=== PATIENT | female | born 1980 | race Caucasian/White ===

== ENCOUNTER 2020-06-19 17:17 | Outpatient (CLI) | payer OTHER, SELFPAY ==
[2020-06-21 14:11] LABS: SARS-CoV-2 RNA PCR Positive
== END 2020-06-19 17:18 | disposition home or self-care (01) ==
LOC: CHSLAB 17:23
PROVIDERS: PCP Family Medicine; Visit Provider Family Medicine
DX: U07.1 COVID-19 (principal)
CPT/HCPCS: 87635; C9803; U0003

== ENCOUNTER 2020-06-28 12:52 | Outpatient (CLI) | payer OTHER, SELFPAY ==
[2020-06-29 13:34] LABS: SARS-CoV-2 RNA PCR Positive
== END 2020-06-28 12:53 | disposition home or self-care (01) ==
PROVIDERS: PCP Family Medicine; Visit Provider Family Medicine
DX: U07.1 COVID-19 (principal)
CPT/HCPCS: 87635; C9803; U0003

== ENCOUNTER 2020-09-30 15:05 | Outpatient (CLI) | payer OTHER, SELFPAY ==
[2020-09-30 16:39] LABS: Alanine Aminotransferase 21 U/L (14-59); Albumin Level 4.3 g/dL (3.4-5.0); Alkaline Phosphatase 38 U/L (46-116); Anion Gap 11 mmol/L (8-16); Aspartate Amino Transferase 12 U/L (15-37); Bilirubin,Total 0.2 mg/dL (0.00-1.00); Blood Urea Nitrogen 23 mg/dL (7-18); Carbon Dioxide 26 mmol/L (21-32); Chloride 104 mmol/L (98-108); Cholesterol 161 mg/dL (0-200); Estimated Glomerular Filt Rate > 60; Glucose 110 mg/dL (70-99); HDL Direct 53 mg/dL (40-60); LDL Cholesterol Calculated 83 mg/dL (<130); Osmolality Calculated 296 mOsm/kg (285-295); Potassium 3.7 mmol/L (3.5-5.1); Sodium 141 mmol/L (136-145); Total Protein 7.3 g/dL (6.4-8.2); Triglycerides 127 mg/dL (0-150)
== END 2020-09-30 15:06 | disposition home or self-care (01) ==
LOC: CHSLAB 15:08
PROVIDERS: PCP Family Medicine; Visit Provider Internal Medicine Cardiovascular Disease
DX: E78.5 Hyperlipidemia, unspecified (principal)
CPT/HCPCS: 36415; 80053; 80061

== ENCOUNTER 2021-03-25 16:34 | Outpatient (CLI) | payer OTHER, SELFPAY ==
[2021-03-25 16:46] LABS: Basophils Absolute Auto 0.05 K/mm3 (0.00-0.10); Basophils Percent Auto 0.7 % (0.0-1.0); Eosinophils Absolute Auto 0.13 K/mm3 (0.02-0.50); Eosinophils Percent Auto 1.8 % (1.0-6.0); Hematocrit 36.8 % (35.0-49.0); Hemoglobin 11.9 g/dL (12.0-15.0); Immature Granulocyte Absolute 0.01 K/mm3 (0.00-0.00); Immature Granulocyte Percent A 0.1 % (0.0-0.0); Lymphocytes Absolute Auto 2.11 K/mm3 (1.10-4.50); Lymphocytes Percent Auto 28.9 % (18.0-42.0); Mean Corpuscular HGB Conc 32.3 g/dL (32.0-36.0); Mean Corpuscular Volume 89.8 fL (78.0-102.0); Mean Platelet Volume 9.6 fl (9.2-11.8); Monocytes Absolute Auto 0.43 K/mm3 (0.10-0.90); Monocytes Percent Auto 5.9 % (2.0-11.0); Neutrophils Absolute Auto 4.6 K/mm3 (1.7-7.2); Neutrophils Percent Auto 62.6 % (50.0-70.0); Platelet Count Result 345 K/mm3 (150-420); Red Cell Distribution Width 14.1 % (11.6-14.4); White Blood Count 7.3 K/mm3 (4.8-10.8)
[2021-03-25 16:54] LABS: Creatinine Urine 140.86 mg/dL (40-278); MALB Creatinine Ratio 12.3 mg/g (0-30); Microalbumin Urine Random 17.4 mg/L
[2021-03-25 16:55] LABS: Hemoglobin A1C 7.5 % (<5.7)
[2021-03-25 17:10] LABS: Anion Gap 11 mmol/L (8-16); Blood Urea Nitrogen 28 mg/dL (7-18); Carbon Dioxide 24 mmol/L (21-32); Chloride 107 mmol/L (98-108); Estimated Glomerular Filt Rate > 60; Glucose 135 mg/dL (70-99); Osmolality Calculated 301 mOsm/kg (285-295); Potassium 3.8 mmol/L (3.5-5.1); Sodium 142 mmol/L (136-145)
== END 2021-03-25 16:35 | disposition home or self-care (01) ==
LOC: CHSLAB 16:36
PROVIDERS: PCP Family Medicine; Visit Provider Family Medicine
DX: E11.9 Type 2 diabetes mellitus without complications (principal); E78.2 Mixed hyperlipidemia; E03.9 Hypothyroidism, unspecified
CPT/HCPCS: 36415; 80048; 82043; 83036; 85025

== ENCOUNTER 2021-08-05 08:16 | Outpatient (CLI) | payer OTHER, SELFPAY ==
[2021-08-05 09:33] LABS: SARS-CoV-2 RNA PCR Negative (Negative)
== END 2021-08-05 08:17 | disposition home or self-care (01) ==
LOC: CHSLAB 08:19
PROVIDERS: PCP Family Medicine; Visit Provider Family Medicine
DX: J32.9 Chronic sinusitis, unspecified (principal); Z20.822 Contact with and (suspected) exposure to COVID-19
CPT/HCPCS: C9803; U0003; U0005

== ENCOUNTER 2021-10-20 17:08 | Outpatient (CLI) | payer OTHER, SELFPAY ==
[2021-10-20 17:31] LABS: Basophils Absolute Auto 0.03 K/mm3 (0.00-0.10); Basophils Percent Auto 0.4 % (0.0-1.0); Eosinophils Percent Auto 1.3 % (1.0-6.0); Hematocrit 40.6 % (35.0-49.0); Hemoglobin 13.6 g/dL (12.0-15.0); Immature Granulocyte Absolute 0.02 K/mm3 (0.00-0.00); Immature Granulocyte Percent A 0.3 % (0.0-0.0); Lymphocytes Absolute Auto 2.24 K/mm3 (1.10-4.50); Mean Corpuscular HGB Conc 33.5 g/dL (32.0-36.0); Mean Corpuscular Hemoglobin 30.4 pg (27.0-31.0); Mean Corpuscular Volume 90.8 fL (78.0-102.0); Mean Platelet Volume 9.9 fl (9.2-11.8); Monocytes Absolute Auto 0.52 K/mm3 (0.10-0.90); Monocytes Percent Auto 6.5 % (2.0-11.0); Neutrophils Absolute Auto 5.1 K/mm3 (1.7-7.2); Neutrophils Percent Auto 63.5 % (50.0-70.0); Platelet Count Result 330 K/mm3 (150-420); Red Blood Count 4.47 M/mm3 (4.20-5.40); Red Cell Distribution Width 13.1 % (11.6-14.4)
[2021-10-20 17:32] LABS: Add Urine Microscopic? YES; Appearance Urine Clear (Clear); Bilirubin Urine Negative (Negative); Blood Urine Negative (Negative); Color Urine Yellow (Yellow); Glucose Urine UA Negative (Negative); Ketones Urine Trace (Negative); Leukocyte Esterase Ur Negative LEU/UL (Negative); Nitrate Urine Negative (Negative); Protein Urine Negative (Negative); Specific Grav Ur 1.025 (1.010-1.020); Urobilinogen Urine 0.2 mg/dL (0.2-1.0)
[2021-10-20 17:38] LABS: Bacteria Urine 2+ /hpf; Pregnancy On Board Control Positive; RBC Urine 0-2 /hpf (0-2); Squamous Epithelial Cell Urine Few /hpf (Few); Urine Pregnancy Test Negative; WBC Urine 0-3 /hpf (0-3)
[2021-10-20 17:43] LABS: Hemoglobin A1C 9.4 % (<5.7)
[2021-10-20 17:56] LABS: Alanine Aminotransferase 28 U/L (14-59); Alkaline Phosphatase 34 U/L (46-116); Amylase 35 U/L (25-115); Anion Gap 12 mmol/L (8-16); Aspartate Amino Transferase 13 U/L (15-37); Bilirubin,Total 0.3 mg/dL (0.00-1.00); Blood Urea Nitrogen 23 mg/dL (7-18); Calcium 8.9 mg/dL (8.5-10.1); Carbon Dioxide 25 mmol/L (21-32); Chloride 103 mmol/L (98-108); Estimated Glomerular Filt Rate 59; Glucose 167 mg/dL (70-99); Lipase 45 U/L (73-393); Osmolality Calculated 297 mOsm/kg (285-295); Potassium 3.5 mmol/L (3.5-5.1); Sodium 140 mmol/L (136-145); Thyroid Stimulating Hormone 8.96 uIU/mL (0.36-3.74); Total Protein 7.6 g/dL (6.4-8.2)
== END 2021-10-20 17:09 | disposition home or self-care (01) ==
LOC: CHSLAB 17:10
PROVIDERS: PCP Family Medicine; Visit Provider Family Medicine
DX: R10.84 Generalized abdominal pain (principal); E11.9 Type 2 diabetes mellitus without complications; R19.7 Diarrhea, unspecified
CPT/HCPCS: 36415; 80053; 81001; 81025; 82150; 83036; 83690; 84443; 85025

== ENCOUNTER 2022-04-16 14:35 | Outpatient (CLI) | payer OTHER, SELFPAY ==
[2022-04-16 15:06] LABS: Basophils Absolute Auto 0.05 K/mm3 (0.00-0.10); Basophils Percent Auto 0.7 % (0.0-1.0); Eosinophils Absolute Auto 0.17 K/mm3 (0.02-0.50); Eosinophils Percent Auto 2.3 % (1.0-6.0); Hematocrit 41.5 % (35.0-49.0); Hemoglobin 13.6 g/dL (12.0-15.0); Immature Granulocyte Absolute 0.02 K/mm3 (0.00-0.00); Immature Granulocyte Percent A 0.3 % (0.0-0.0); Lymphocytes Absolute Auto 2.09 K/mm3 (1.10-4.50); Lymphocytes Percent Auto 28.6 % (18.0-42.0); Mean Corpuscular HGB Conc 32.8 g/dL (32.0-36.0); Mean Corpuscular Hemoglobin 29.5 pg (27.0-31.0); Mean Platelet Volume 9.9 fl (9.2-11.8); Monocytes Absolute Auto 0.52 K/mm3 (0.10-0.90); Monocytes Percent Auto 7.1 % (2.0-11.0); Neutrophils Absolute Auto 4.5 K/mm3 (1.7-7.2); Platelet Count Result 371 K/mm3 (150-420); Red Blood Count 4.61 M/mm3 (4.20-5.40); Red Cell Distribution Width 12.6 % (11.6-14.4); White Blood Count 7.3 K/mm3 (4.8-10.8)
[2022-04-16 15:41] LABS: Alanine Aminotransferase 25 U/L (14-59); Albumin Level 4.6 g/dL (3.4-5.0); Alkaline Phosphatase 32 U/L (46-116); Amylase 34 U/L (25-115); Anion Gap 10 mmol/L (8-16); Aspartate Amino Transferase 13 U/L (15-37); Bilirubin,Total 0.3 mg/dL (0.00-1.00); Blood Urea Nitrogen 21 mg/dL (7-18); Calcium 9.2 mg/dL (8.5-10.1); Carbon Dioxide 25 mmol/L (21-32); Chloride 105 mmol/L (98-108); Creatine Kinase 56 U/L (26-192); Estimated Glomerular Filt Rate 59; Glucose 157 mg/dL (70-99); Lipase 57 U/L (73-393); Osmolality Calculated 296 mOsm/kg (285-295); Potassium 3.6 mmol/L (3.5-5.1); Sodium 140 mmol/L (136-145); Total Protein 7.7 g/dL (6.4-8.2)
[2022-04-16 15:42] LABS: CRP < 0.5 mg/dL (0.0-0.9)
[2022-04-16 15:50] LABS: Add Urine Microscopic? YES; Appearance Urine Clear (Clear); Bilirubin Urine Negative (Negative); Blood Urine 3+ (Negative); Color Urine Yellow (Yellow); Glucose Urine UA Negative (Negative); Ketones Urine Trace (Negative); Leukocyte Esterase Ur Negative (Negative); Nitrate Urine Negative (Negative); Protein Urine Negative (Negative); Specific Grav Ur >= 1.030 (1.010-1.020); Urobilinogen Urine 0.2 mg/dL (0.2-1.0); pH Urine 5.5 (5.0-8.0)
[2022-04-16 16:07] LABS: WBC Urine 0-3 /hpf (0-3)
[2022-04-16 16:08] LABS: Bacteria Urine Trace /hpf; Squamous Epithelial Cell Urine Few /hpf (Few)
[2022-04-19 19:43] LABS: Glutamic acid decarboxylase AA >250 IU/mL (<5)
== END 2022-04-16 14:36 | disposition home or self-care (01) ==
LOC: CHSLAB 14:38
PROVIDERS: PCP Family Medicine; Visit Provider Nurse Practitioner Family
DX: R07.9 Chest pain, unspecified (principal); E11.65 Type 2 diabetes mellitus with hyperglycemia
CPT/HCPCS: 36415; 80053; 81001; 82150; 82550; 82553; 83690; 84484; 85025; 86140; 86341; 87086; 87088

== ENCOUNTER 2022-05-30 15:17 | Emergency (ER) | payer OTHER, SELFPAY ==
--- NOTE | ~2022-05-30 | XR_ITS ---
XR wrist LT 2V DATE: 05/30/2022 17:54 INDICATION: Bilateral wrist pain after going down a slide today TECHNIQUE: AP and lateral views COMPARISON: None FINDINGS: No fracture or dislocation, periosteal reaction or bone destruction, erosive change or ysabel drocalcinosis. Joint spaces are well preserved. IMPRESSION: Negative Reviewed, dictated and finalized at location A. IMPRESSION: Negative
--- NOTE | ~2022-05-30 | XR_ITS ---
XR wrist RT 2V DATE: 05/30/2022 17:54 INDICATION: Bilateral wrist pain after injury today TECHNIQUE: AP and lateral views COMPARISON: None FINDINGS: No fracture or dislocation, periosteal reaction or bone destruction, joint space narrowing, erosive change or chondrocalcinosis. IMPRESSION: Negative Reviewed, dictated and finalized at location A. IMPRESSION: Negative
--- NOTE | ~2022-05-30 | CT_ITS ---
EXAMINATION: CT cervical spine wo con DATE: 05/30/2022 17:51 INDICATION: Neck pain after injury on a slide TECHNIQUE: Computed tomography (CT) of the cervical spine was performed without intravenous contrast. Automated exposure control and iterative reconstruction technique were employed. Exam dose: 379.75 mGy-cm total exam DLP. COMPARISON: None FINDINGS: There is straightening of spine which may be positional or due to muscle spasm. C1 and C2 are normally aligned and the odontoid process is intact. No fracture or dislocation or locked facet or prevertebral soft tissue swelling of the cervical spine . Cervical interspaces are relatively preserved. Mild posterior spurring at C4-5.. IMPRESSION: Mild degenerative change; no evidence of fracture or dislocation Reviewed, dictated and finalized at Location A. Reviewed, dictated and finalized at location A.
--- NOTE | ~2022-05-30 | XR_ITS ---
XR forearm LT 2V DATE: 05/30/2022 17:53 INDICATION: Left arm pain after injury going down a slide today TECHNIQUE: 2 views COMPARISON: None FINDINGS: No fracture or dislocation. No apparent elbow joint effusion. Normal alignment at the elbow and wrist joints. IMPRESSION: Negative Reviewed, dictated and finalized at location A. IMPRESSION: Negative
--- NOTE | ~2022-05-30 | XR_ITS ---
XR humerus LT DATE: 05/30/2022 17:52 INDICATION: Left arm pain TECHNIQUE: AP and lateral views COMPARISON: None FINDINGS: Normal alignment at the acromioclavicular, glenohumeral and elbow joints. No fracture or di slocation, periosteal reaction or bone destruction of the left humerus. IMPRESSION: Negative Reviewed, dictated and finalized at location A. IMPRESSION: Negative
[2022-05-30 16:30] VITALS: BP 122/84; PULSE 78; RESP 16; TEMP 36.3; O2SAT 98
--- NOTE | 2022-05-30 16:50 | PC.NURSE ---
1635 c-collar applied to pt after complaint of cervical neck injury
--- NOTE | 2022-05-30 16:52 | PC.NURSE ---
1635 ice pack to right wrist, left wrist/forearm. pt declined need for ice to left humerus.
[2022-05-30] MEDS: KETOROLAC (*BKC) 60 MG/2 ML VIAL IM (17:07)
[2022-05-30] MEDS: METOCLOPRAMIDE HCL INJ 10 MG/2 ML VIAL IM (17:07)
--- NOTE | 2022-05-30 17:39 | PC.NURSE ---
pt to xray dept via stretcher with xray staff.
--- NOTE | 2022-05-30 18:07 | PC.NURSE ---
pt c-collar removed per verbal order from dr england.
--- NOTE | 2022-05-30 18:19 | ED.NECK ---
HPI - Neck Pain/Injury General Chief Complaint: Neck Pain/Injury Stated Complaint: neck injury and pain down arm Time Seen by Provider: 05/30/22 15:29 Source: patient and family Mode of arrival: ambulatory Limitations: no limitations History of Present Illness HPI Narrative: This is a 41-year-old female that was at [employer] was on a trampoline and took a fall off a trampoline causing injury to her neck and to her left arm and bilateral wrists happened earlier today pain level about a 6/10 with some nausea with no headache no shortness of breath no chest pain no dysuria no abdominal pain no flank pain. complaint: neck pain Onset (ago): hour(s) Place: sports venue Related Data Home Medications Medication Instructions Recorded Confirmed metformin 500 mg tablet 500 mg PO TID 01/01/20 05/30/22 topiramate 100 mg tablet 100 mg PO DAILY 01/01/20 05/30/22 ascorbate calcium (vitamin C) 500 500 mg PO DAILY 03/18/20 05/30/22 mg tablet insulin glargine 100 unit/mL (3 20 unit subcut DAILY 03/18/20 05/30/22 mL) subcutaneous pen (Basaglar KwikPen U-100 Insulin) levothyroxine 175 mcg tablet 175 mcg PO DAILY 03/18/20 05/30/22 (Euthyrox) multivitamin (One-A-Day Essential 1 tablet PO DAILY 03/18/20 05/30/22 tablet) aspirin 81 mg tablet,delayed 81 mg PO DAILY 09/23/20 05/30/22 release (Adult Aspirin Regimen) atorvastatin 20 mg tablet 20 mg PO DAILY 09/23/20 05/30/22 Allergies Allergy/AdvReac Type Severity Reaction Status Date / Time ondansetron Allergy Severe Unknown Verified 12/11/20 10:24 pineapple Allergy Unknown Unknown Verified 12/11/20 10:24 Review of Systems Review of Systems: All systems reviewed & are unremarkable except as noted in HPI and below PMFSH Past Medical History Medical History (Updated 05/30/22 @ 18:23 by Christopher Garcia MD) Cardiac arrhythmia Diabetes Headache, migraine Thyroid disease Surgical History Surgical History History of Family History Family History Sibling Diabetes mellitus Mother Family history of thyroid disease Family history of migraine headaches Hypertension Patient's mother is in good health Family history of arthritis Social History Social History Smoking status: Former smoker Alcohol intake: current Exam Const: General: healthy appearing and no acute distress Nutritional Appearance: well nourished Limitations: no limitations HENMT: Head: normal to inspection General nose exam: Normal external nose present Face and sinus: normal facial exam Mouth: Yes Normal oral and palatal mucosa present Eyes: Conjunctivae: conjunctivae normal Pupils: Equal, round and reactive pupils present EOM: EOMs intact bilaterally Neck: Neck: normal visual inspection, no lymphadenopathy and no meningeal signs Chest: Chest palpation & inspection: normal inspection of the chest Resp: Effort & Inspection: normal respiratory effort Auscultation: clear to auscultation bilaterally Cardio: Rate: regular rate Rhythm: regular rhythm GI: GI Palp: Yes Soft to palpation Auscultation: normal bowel sounds : General: Yes bladder normal to palpation Back/Spine/Pelvis: Back: no CVA tenderness Skin: General skin exam: normal color Rashes: no rashes Neuro: General: patient oriented x3, moves all extremities and no meningeal signs Cranial nerves: Yes Nystagmus not present Speech: normal speech Gait exam (Neuro): Normal gait present Extrem: Other: Has tenderness in the cervical spine has good range of motion also having left arm and bilateral wrist pain with movement with no numbness or tingling. Psych: Mental Status: mental status grossly normal Affect: normal affect Course Course Emergency Course: Patient received Toradol IM and Reglan and her pain level has significantly i
[2022-05-30 18:45] VITALS: BP 119/82; PULSE 82; RESP 20; TEMP 36.6; O2SAT 97
== END 2022-05-30 18:50 | disposition home or self-care (01) ==
PROVIDERS: Emergency Provider Emergency Medicine; PCP Family Medicine
DX: S16.1XXA Strain of muscle, fascia and tendon at neck level, initial encounter (principal); W09.8XXA Fall on or from other playground equipment, initial encounter
CPT/HCPCS: 72125; 73060; 73090; 73100; 96372; 99284; J1885; J2765; L0150

== ENCOUNTER 2022-07-23 09:06 | Outpatient (CLI) | payer OTHER, SELFPAY ==
--- NOTE | ~2022-07-23 | XR_ITS ---
XR ribs BI 3V w CXR 2V DATE: 07/23/2022 09:46 INDICATION: Fall 2 months ago. Chest pain, worse on the right, with breathing TECHNIQUE: PA and lateral chest. 3 views of the right ribs. 3 views of left ribs. COMPARISON: None FINDINGS: Normal heart size. No hilar or mediastinal enlargement. No pulmonary infiltrate or consolid ation, pleural effusion or pulmonary vascular congestion or pneumothorax. Mild to moderate degenerative spurring of the thoracic spine. No left or right rib fracture or bone destruction is detected. Status post cholecystectomy. IMPRESSION: No active cardiac pulmonary disease or rib fractures detected Reviewed, dictated and finalized at location B. PAPER CARRIERS SUPERVISOR
[2022-07-23 09:30] LABS: Basophils Absolute Auto 0.03 K/mm3 (0.00-0.10); Basophils Percent Auto 0.5 % (0.0-1.0); Eosinophils Absolute Auto 0.06 K/mm3 (0.02-0.50); Hematocrit 35.3 % (35.0-49.0); Immature Granulocyte Absolute 0.02 K/mm3 (0.00-0.00); Immature Granulocyte Percent A 0.3 % (0.0-0.0); Lymphocytes Absolute Auto 1.36 K/mm3 (1.10-4.50); Lymphocytes Percent Auto 22.3 % (18.0-42.0); Mean Corpuscular HGB Conc 31.2 g/dL (32.0-36.0); Mean Corpuscular Hemoglobin 25.9 pg (27.0-31.0); Mean Corpuscular Volume 83.3 fL (78.0-102.0); Mean Platelet Volume 9.4 fl (9.2-11.8); Monocytes Absolute Auto 0.38 K/mm3 (0.10-0.90); Monocytes Percent Auto 6.2 % (2.0-11.0); Neutrophils Absolute Auto 4.3 K/mm3 (1.7-7.2); Neutrophils Percent Auto 69.7 % (50.0-70.0); Platelet Count Result 497 K/mm3 (150-420); Red Blood Count 4.24 M/mm3 (4.20-5.40); Red Cell Distribution Width 12.9 % (11.6-14.4); White Blood Count 6.1 K/mm3 (4.8-10.8)
[2022-07-23 09:33] LABS: Appearance Urine Cloudy (Clear); Bilirubin Urine Negative (Negative); Glucose Urine UA 3+ (Negative); Ketones Urine Trace (Negative); Leukocyte Esterase Ur 1+ (Negative); Nitrate Urine Positive (Negative); Protein Urine Trace (Negative); Urobilinogen Urine 0.2 mg/dL (0.2-1.0); pH Urine 6.5 (5.0-8.0)
[2022-07-23 09:48] LABS: Add Urine Microscopic? YES; Blood Urine Trace-Intact (Negative); Color Urine Light Yellow (Yellow)
[2022-07-23 09:49] LABS: Bacteria Urine 2+ /hpf; Squamous Epithelial Cell Urine Few /hpf (Few); WBC Urine 31-50 /hpf (0-3)
[2022-07-23 10:31] LABS: Creatinine Urine 97.18 mg/dL (40-278); MALB Creatinine Ratio 101.5 mg/g (0-30); Microalbumin Urine Random 98.7 mg/L
[2022-07-23 10:34] LABS: Alanine Aminotransferase 25 U/L (14-59); Albumin Level 4.2 g/dL (3.4-5.0); Alkaline Phosphatase 35 U/L (46-116); Anion Gap 11 mmol/L (8-16); Aspartate Amino Transferase 13 U/L (15-37); Bilirubin,Total 0.4 mg/dL (0.00-1.00); Blood Urea Nitrogen 24 mg/dL (7-18); Calcium 9.6 mg/dL (8.5-10.1); Carbon Dioxide 25 mmol/L (21-32); Chloride 105 mmol/L (98-108); Cholesterol 163 mg/dL (0-200); Estimated Glomerular Filt Rate > 60; Glucose 141 mg/dL (70-99); HDL Direct 57 mg/dL (40-60); LDL Cholesterol Calculated 87 mg/dL (<130); Osmolality Calculated 298 mOsm/kg (285-295); Potassium 4.2 mmol/L (3.5-5.1); Sodium 141 mmol/L (136-145); Thyroid Stimulating Hormone 0.52 uIU/mL (0.36-3.74); Total Protein 7.5 g/dL (6.4-8.2); Triglycerides 97 mg/dL (0-150); Vitamin B12 587 pg/mL (193-986)
[2022-07-23 10:49] LABS: Amylase 35 U/L (25-115); Lipase 78 U/L (73-393)
[2022-07-23 15:28] LABS: Ferritin 4 ng/mL (8-252); Iron 21 ug/dL (50-170); Percent Iron Saturation 6 % (12-57)
[2022-07-27 20:54] LABS: C-Peptide 2.21 ng/mL (0.80-3.85)
[2022-07-28 20:03] LABS: Vitamin D 25 Hydroxy 31 ng/mL (30-100)
[2022-08-01 18:08] LABS: Zinc Transporter 8 Antibody 75 U/mL (<15)
== END 2022-07-23 09:07 | disposition home or self-care (01) ==
PROVIDERS: PCP Family Medicine; Visit Provider Nurse Practitioner Family
DX: R10.11 Right upper quadrant pain (principal); R53.83 Other fatigue; E11.9 Type 2 diabetes mellitus without complications; D64.9 Anemia, unspecified; N39.0 Urinary tract infection, site not specified
CPT/HCPCS: 36415; 71046; 71110; 80053; 80061; 81001; 82043; 82150; 82306; 82607; 82728; 83540; 83550; 83690; 84439; 84443; 84681; 85025; 86341; 87077; 87086; 87088; 87186

== ENCOUNTER 2022-07-27 13:53 | Outpatient (CLI) | payer OTHER, SELFPAY ==
--- NOTE | ~2022-07-27 | MM_ITS ---
EXAMINATION: MM screening damaris BI w jim HISTORY: Baseline screening mammogram TECHNIQUE: Craniocaudal and mediolateral oblique 3-D tomosynthesis images were obtained and synthetic 2-D images were generated. CAD analysis was submitted and interpreted. COMPARISON: None, baseline BREAST PARENCHYMAL COMPOSITION: There are scattered areas of fibroglandular density. FINDINGS: Scattered benign-appearing calcifications are present. No suspicious mass, calcification, o r architectural distortion are identified in either breast to suggest malignancy. IMPRESSION: 1. No mammographic evidence of malignancy. 2. Recommend routine screening mammography in one year. BI-RADS Category 2: Benign finding(s). Reviewed, dictated and finalized at location A. HOLOGICAL OPERATIONS OFFICER
== END 2022-07-27 13:54 | disposition home or self-care (01) ==
LOC: CHSIMG 13:54
PROVIDERS: PCP Family Medicine; Visit Provider Family Medicine
DX: Z12.31 Encounter for screening mammogram for malignant neoplasm of breast (principal)
CPT/HCPCS: 77063; 77067

== ENCOUNTER 2022-08-11 12:12 | Outpatient (CLI) | payer OTHER, SELFPAY ==
[2022-08-11 13:03] LABS: SARS-CoV-2 RNA PCR Negative (Negative)
== END 2022-08-11 12:13 | disposition home or self-care (01) ==
LOC: CHSLAB 12:16
PROVIDERS: PCP Family Medicine; Visit Provider Family Medicine
DX: R51.9 Headache, unspecified (principal); Z20.822 Contact with and (suspected) exposure to COVID-19
CPT/HCPCS: U0003; U0005

== ENCOUNTER 2022-08-17 10:41 | Emergency (ER) | payer OTHER, SELFPAY ==
--- NOTE | ~2022-08-17 | XR_ITS ---
EXAMINATION: XR chest 1V portable DATE: 08/17/2022 11:33 INDICATION: Inferior sternal chest pain. TECHNIQUE: A single frontal view of the chest was obtained. COMPARISON: Chest 2 views 07/23/2022 FINDINGS: The chest demonstrates clear lungs without pneumonia, pleural effusion, or pneumothorax. Th e heart size is normal. IMPRESSION: 1. No acute cardiopulmonary disease. Reviewed, dictated and finalized at location A. DER
[2022-08-17 10:42] VITALS: BP 126/62; PULSE 80; RESP 18; TEMP 36.4; O2SAT 99
[2022-08-17 10:45] VITALS: BP 126/62; PULSE 93; RESP 16; TEMP 36.4; O2SAT 99
[2022-08-17 10:50] VITALS: PULSE 87
--- NOTE | 2022-08-17 10:56 | ED.CHESTPAIN ---
HPI - Chest Pain General Chief Complaint: Chest Pain Stated Complaint: Chest pain, pain lower stomach Time Seen by Provider: 08/17/22 10:56 Source: patient Mode of arrival: ambulatory History of Present Illness HPI narrative: 41-year-old female with a history of hypertension, hypothyroidism,diabetes mellitus, dyslipidemia, status post bilateral tubal ligation presents to the ER with a 3 day history of -- lower substernal chest pain. Pain is not related to exercise. Pain is rated at 8/10. No radiation of the pain. No lightheadedness or dizziness. Pain does cause her to have shortness of breath. Pain gets worse with deep breathing. -- Right lower quadrant abdominal pain. No fever. No nausea / vomiting / diarrhea / constipation. History of a mass removed from the left side of the abdomen -- vaginal bleeding for 1 day. MD complaint: chest pain Onset (ago): day(s) ( Started 3 days ago) Timing of current episode: episodic Prior episodes: No Onset: during rest Pain location: substernal Pain radiation: none Pain scale (0-10): 8 Quality: aching Relieving factors: nothing Exacerbating factors: inspiration Treatment prior to arrival: none Risk Factors Coronary artery disease risk factors: diabetes and hyperlipidemia Related Data On Oral Contraceptives: No Home Medications Medication Instructions Recorded Confirmed topiramate 100 mg tablet 100 mg PO DAILY 01/01/20 08/17/22 ascorbate calcium (vitamin C) 500 500 mg PO DAILY 03/18/20 08/17/22 mg tablet insulin glargine 100 unit/mL (3 20 unit subcut DAILY 03/18/20 08/17/22 mL) subcutaneous pen (Basaglar KwikPen U-100 Insulin) levothyroxine 175 mcg tablet 175 mcg PO DAILY 03/18/20 08/17/22 (Euthyrox) multivitamin (One-A-Day Essential 1 tablet PO DAILY 03/18/20 08/17/22 tablet) aspirin 81 mg tablet,delayed 81 mg PO DAILY 09/23/20 08/17/22 release (Adult Aspirin Regimen) atorvastatin 20 mg tablet 20 mg PO DAILY 09/23/20 08/17/22 Saccharomyces boulardii 250 mg 250 mg PO BID 06/11/22 08/17/22 capsule (Digest Probiotic (S.boulardii)) dulaglutide 4.5 mg/0.5 mL 4.5 mg subcut WEEKLY 06/11/22 08/17/22 [facility] omeprazole 40 mg capsule,delayed 40 mg PO 06/11/22 06/15/22 release Allergies Allergy/AdvReac Type Severity Reaction Status Date / Time ondansetron Allergy Severe Unknown Verified 08/17/22 10:57 pineapple Allergy Unknown Unknown Verified 08/17/22 10:57 Sulfa (Sulfonamide Allergy Itching Verified 08/17/22 12:36 Antibiotics) Review of Systems Review of Systems: All systems reviewed & are unremarkable except as noted in HPI and below Constitutional: Constitutional: Reports as per HPI and Reports no additional constitutional complaints Eyes: Eyes: Reports as per HPI and Reports no additional eye complaints ENT: Reports system reviewed and no additional complaints, except as documented and Reports as per HPI Cardiovascular: Cardiovascular: Reports as per HPI, Reports no additional cardiovascular complaints and Reports chest pain Respiratory: Respiratory: Reports as per HPI, Reports no additional respiratory complaints and Reports dyspnea Gastrointestinal: Gastrointestinal: Reports as per HPI, Reports no additional gastrointestinal complaints and Reports abdominal pain Comments: Right lower quadrant abdominal pain. Genitourinary: Genitourinary: Reports no additional female genitourinary complaints, Reports as per HPI and Reports abnormal vaginal bleeding Musculoskeletal: Musculoskeletal: Reports no additional musculoskeletal complaints and Reports as per HPI Integumentary/Breasts: Skin/Breast: Reports system reviewed and no additional complaints, except as docu and Reports as per HPI Neurologic: Reports system reviewed and no additional complaints, except as documented and Reports as per HPI Psychiatric: Psychiatric: Reports no additional psychiatric complaints and Reports as per HPI Endocrine: Endocrine
[2022-08-17 10:57] VITALS: BP 126/62; PULSE 80; RESP 18; TEMP 36.4; O2SAT 99
--- NOTE | 2022-08-17 11:11 | ECG_ITS ---
Measurements Intervals [place] Rate: 71 P: 45 SC: 182 QRS: -50 QRSD: 95 T: 54 QT: 347 QTc: 378 Interpretive Statements SINUS RHYTHM WITH SINUS ARRHYTHMIA LEFT AXIS DEVIATION [QRS AXIS < -30] POOR R-WAVE PROGRESSION NO PREVIOUS ECG AVAILABLE FOR COMPARISON Electronically Signed On 08-18-2022 19:14:10 THERAPIST by Willa Page M.D.
[2022-08-17 11:30] LABS: Basophils Absolute Auto 0.04 K/mm3 (0.00-0.10); Basophils Percent Auto 0.6 % (0.0-1.0); Eosinophils Absolute Auto 0.04 K/mm3 (0.02-0.50); Eosinophils Percent Auto 0.6 % (1.0-6.0); Hematocrit 33.1 % (35.0-49.0); Hemoglobin 10.2 g/dL (12.0-15.0); Immature Granulocyte Absolute 0.02 K/mm3 (0.00-0.00); Immature Granulocyte Percent A 0.3 % (0.0-0.0); Lymphocytes Absolute Auto 1.27 K/mm3 (1.10-4.50); Lymphocytes Percent Auto 19.3 % (18.0-42.0); Mean Corpuscular HGB Conc 30.8 g/dL (32.0-36.0); Mean Corpuscular Hemoglobin 24.9 pg (27.0-31.0); Mean Corpuscular Volume 80.9 fL (78.0-102.0); Mean Platelet Volume 9.7 fl (9.2-11.8); Monocytes Absolute Auto 0.39 K/mm3 (0.10-0.90); Monocytes Percent Auto 5.9 % (2.0-11.0); Neutrophils Absolute Auto 4.8 K/mm3 (1.7-7.2); Neutrophils Percent Auto 73.3 % (50.0-70.0); Platelet Count Result 402 K/mm3 (150-420); Red Blood Count 4.09 M/mm3 (4.20-5.40); Red Cell Distribution Width 14.2 % (11.6-14.4); White Blood Count 6.6 K/mm3 (4.8-10.8)
[2022-08-17 11:34] LABS: Appearance Urine Clear (Clear); Bilirubin Urine Negative (Negative); Blood Urine Negative (Negative); Glucose Urine UA 3+ (Negative); Ketones Urine 1+ (Negative); Leukocyte Esterase Ur Negative LEU/UL (Negative); Nitrate Urine Negative (Negative); Protein Urine Negative (Negative); Urobilinogen Urine 0.2 mg/dL (0.2-1.0); pH Urine 6.5 (5.0-8.0)
[2022-08-17 11:44] LABS: Partial Thromboplastin Time 27.3 SEC (23.90-30.70); Prothrombin Time 11.3 Seconds (9.50-12.10)
[2022-08-17 12:00] VITALS: BP 118/71; PULSE 71; PULSE 84; RESP 16; O2SAT 98
[2022-08-17 12:45] LABS: Add Urine Microscopic? YES; Color Urine Light Yellow (Yellow)
[2022-08-17 12:46] LABS: RBC Urine None seen /hpf (0-2); Squamous Epithelial Cell Urine Few /hpf (Few); WBC Urine None seen /hpf (0-3)
[2022-08-17 12:47] LABS: Bacteria Urine Trace /hpf
[2022-08-17 14:00] VITALS: BP 108/74; PULSE 68; RESP 16; O2SAT 98
[2022-08-17 15:07] LABS: Aspartate Amino Transferase < 10 U/L (15-37); Blood Urea Nitrogen 0 mg/dL (7-18)
[2022-08-17 15:16] LABS: Lactic Acid Reflex 0.7 mmol/L (0.4-2.0)
[2022-08-17 15:20] LABS: Lipase 72 U/L (73-393); Thyroid Stimulating Hormone 0.61 uIU/mL (0.36-3.74); Troponin I 15.4 ng/L (0.00-60.4)
[2022-08-17 15:25] LABS: Alanine Aminotransferase 15 U/L (14-59); Alkaline Phosphatase 31 U/L (46-116); Anion Gap 10 mmol/L (8-16); Bilirubin,Total 0.3 mg/dL (0.00-1.00); Calcium 8.8 mg/dL (8.5-10.1); Carbon Dioxide 27 mmol/L (21-32); Chloride 103 mmol/L (98-108); Estimated CRCL calculation 88 ml/min; Estimated Glomerular Filt Rate > 60; Glucose 189 mg/dL (70-99); Osmolality Calculated 290 mOsm/kg (285-295); Potassium 3.6 mmol/L (3.5-5.1); Sodium 140 mmol/L (136-145); Total Protein 6.7 g/dL (6.4-8.2)
== END 2022-08-17 14:20 | disposition left against medical advice (07) ==
PROVIDERS: Emergency Provider Internal Medicine Critical Care Medicine; PCP Family Medicine
DX: R07.9 Chest pain, unspecified (principal); R10.9 Unspecified abdominal pain; D64.9 Anemia, unspecified
CPT/HCPCS: 36415; 71045; 80053; 81001; 83605; 83690; 84443; 84484; 85025; 85610; 85730; 93005; 99284

== ENCOUNTER 2022-08-24 15:46 | Emergency (ER) | payer OTHER, SELFPAY ==
[2022-08-24 16:06] VITALS: BP 124/87; PULSE 78; RESP 18; TEMP 36.5; O2SAT 99
--- NOTE | 2022-08-24 16:29 | ED.HA ---
HPI - Headache General Chief Complaint: Headache Stated Complaint: migraine Time Seen by Provider: 08/24/22 16:18 Source: patient and RN notes reviewed Mode of arrival: ambulatory Limitations: no limitations History of Present Illness HPI Narrative: patient states she has migraines occasionally in her right anabaptism. She usually takes Imitrex and it goes away. Headache started this morning she has been having some nausea without vomiting. She denies any problems with light or sound making it worse. MD elicited complaint: migraine Pertinent past history: migraines Onset (ago): day(s) (1) Onset description: gradually Location: right and temporal Severity: moderate Quality & Timing: throbbing and dull Exacerbating factors: none Relieving factors: nothing Context: occurred at rest Associated symptoms: nausea Treatments prior to arrival: migraine medication Related Data Home Medications Medication Instructions Recorded Confirmed topiramate 100 mg tablet 100 mg PO DAILY 01/01/20 08/24/22 ascorbate calcium (vitamin C) 500 500 mg PO DAILY 03/18/20 08/24/22 mg tablet insulin glargine 100 unit/mL (3 20 unit subcut DAILY 03/18/20 08/24/22 mL) subcutaneous pen (Basaglar KwikPen U-100 Insulin) levothyroxine 175 mcg tablet 175 mcg PO DAILY 03/18/20 08/24/22 (Euthyrox) multivitamin (One-A-Day Essential 1 tablet PO DAILY 03/18/20 08/24/22 tablet) aspirin 81 mg tablet,delayed 81 mg PO DAILY 09/23/20 08/24/22 release (Adult Aspirin Regimen) atorvastatin 20 mg tablet 20 mg PO DAILY 09/23/20 08/24/22 Saccharomyces boulardii 250 mg 250 mg PO BID 06/11/22 08/24/22 capsule (Digest Probiotic (S.boulardii)) dulaglutide 4.5 mg/0.5 mL 4.5 mg subcut WEEKLY 06/11/22 08/24/22 subcutaneous pen injector ([facility]) omeprazole 40 mg capsule,delayed 40 mg PO DAILY 06/11/22 08/24/22 release Allergies Allergy/AdvReac Type Severity Reaction Status Date / Time ondansetron Allergy Severe Unknown Verified 08/24/22 16:13 pineapple Allergy Unknown Unknown Verified 08/24/22 16:13 Sulfa (Sulfonamide Allergy Itching Verified 08/24/22 16:13 Antibiotics) Review of Systems Review of Systems: All systems reviewed & are unremarkable except as noted in HPI and below PMFSH Past Medical History Medical History Body mass index (BMI) 35 or more (02/03/19) Cardiac arrhythmia Diabetes 1.5, managed as type 2 Dyslipidemia Headache, migraine Obesity (BMI 35.0-39.9 without comorbidity) JENNY (obstructive sleep apnea) Thyroid disease Ventricular ectopic beats Surgical History Surgical History History of abdominal surgery Removal of mass on left side History of bilateral tubal ligation History of x2 History of cholecystectomy Family History Family History Sibling Diabetes mellitus sister Family history of migraine headaches sister Thyroid disorder sister Mother Family history of thyroid disease Family history of migraine headaches Hypertension Family history of arthritis Grandparent Cerebrovascular accident Thyroid disorder Osteoporosis Pacemaker Grandparent Acute myocardial infarction Hypertension Social History Social History Smoking status: Former smoker Tobacco type: cigarettes Alcohol intake: former Substance use: current Substance use type: marijuana Other substance usage details: Sometimes Gender identity (if verbalized by the patient): Female Exam Const: General: healthy appearing, no acute distress and alert Nutritional Appearance: well nourished and obese Orientation/consciousness: patient oriented x3 Limitations: no limitations HENMT: Head: normal to inspection Ears: external ears normal Eyes: Conjunctivae: conjunctiva
[2022-08-24] MEDS: METOCLOPRAMIDE HCL INJ 10 MG/2 ML VIAL IV PUSH (16:31)
[2022-08-24] MEDS: diphenhydrAMINE HCl INJ 50 MG/ML VIAL IV PUSH (16:31)
[2022-08-24] MEDS: KETOROLAC 30 MG/ML VIAL (*BKC) IV PUSH (16:32)
--- NOTE | 2022-08-24 16:39 | PC.NURSE ---
Pt has freestyle melissa pod in upper right arm that lets her know her current blood glucose which is 125 currently.
[2022-08-24 17:00] VITALS: BP 94/63; PULSE 75; RESP 18; TEMP 36.4; O2SAT 100
--- NOTE | 2022-08-24 17:20 | PC.NURSE ---
Pt resting better at this time, lights were turned off for comfort.
== END 2022-08-24 17:45 | disposition home or self-care (01) ==
PROVIDERS: Emergency Provider Emergency Medicine; PCP Family Medicine
DX: G43.009 Migraine without aura, not intractable, without status migrainosus (principal); E13.9 Other specified diabetes mellitus without complications; Z79.4 Long term (current) use of insulin; Z79.82 Long term (current) use of aspirin; Z87.891 Personal history of nicotine dependence
CPT/HCPCS: 96374; 96375; 99284; J1200; J1885; J2765

== ENCOUNTER 2022-10-05 15:36 | Outpatient (CLI) | payer OTHER, SELFPAY ==
--- NOTE | ~2022-10-05 | XR_ITS ---
EXAM: XR wrist RT min 3V DATE: 10/05/2022 16:00 HISTORY: CERVICALGIA, PAIN IN R WRIST,S/P INJURY ON SLIDE X4MO AGO . COMPARISON: 05/30/2022. FINDINGS: Normal mineralization. Old ulnar styloid fracture. No acute fracture. Apparent widening of the distal radial ulnar joint. No lytic or blastic lesion. Joint spaces are maintained. No erosion o r periosteal change. Soft tissues within normal limits. IMPRESSION: Apparent distal radial ulnar joint widening which may be artifact from projection or rela syeda to ligamentous injury. Correlate with pain/tenderness. Reviewed, dictated and finalized at location K. IT CASHIER IMPRESSION: Apparent distal radial ulnar joint widening which may be artifact f rom projection or related to ligamentous injury. Correlate with pain/tenderness .
--- NOTE | ~2022-10-05 | XR_ITS ---
EXAMINATION: XR_CERV2-3V_CR DATE: 10/05/2022 16:00 INDICATION: Neck pain. TECHNIQUE: 3 views of cervical spine were obtained. COMPARISON: CT cervical spine 05/30/2022. FINDINGS: Bone alignment is normal. Vertebral body heights and intervertebral disc heights are normal . The facet joints are normal. There is mild central canal stenosis at C4-C5. No prevertebral soft ti ssue swelling. IMPRESSION: 1. Mild cervical spondylosis. Reviewed, dictated and finalized at location A. CARPENTER
== END 2022-10-05 15:37 | disposition home or self-care (01) ==
LOC: CHSIMG 15:38
PROVIDERS: PCP Family Medicine; Visit Provider Family Medicine
DX: M25.531 Pain in right wrist (principal); M54.2 Cervicalgia; M43.02 Spondylolysis, cervical region
CPT/HCPCS: 72040; 73110

== ENCOUNTER 2022-10-19 14:04 | Outpatient (CLI) | payer OTHER, SELFPAY ==
[2022-10-19 14:25] LABS: Basophils Absolute Auto 0.06 K/mm3 (0.00-0.10); Eosinophils Absolute Auto 0.17 K/mm3 (0.02-0.50); Eosinophils Percent Auto 2.8 % (1.0-6.0); Hematocrit 33.6 % (35.0-49.0); Hemoglobin 10.2 g/dL (12.0-15.0); Immature Granulocyte Absolute 0.01 K/mm3 (0.00-0.00); Immature Granulocyte Percent A 0.2 % (0.0-0.0); Lymphocytes Absolute Auto 1.55 K/mm3 (1.10-4.50); Lymphocytes Percent Auto 25.2 % (18.0-42.0); Mean Corpuscular HGB Conc 30.4 g/dL (32.0-36.0); Mean Corpuscular Hemoglobin 24.4 pg (27.0-31.0); Mean Corpuscular Volume 80.4 fL (78.0-102.0); Mean Platelet Volume 9.9 fl (9.2-11.8); Monocytes Percent Auto 6.5 % (2.0-11.0); Neutrophils Percent Auto 64.3 % (50.0-70.0); Platelet Count Result 336 K/mm3 (150-420); Red Blood Count 4.18 M/mm3 (4.20-5.40); Red Cell Distribution Width 16.5 % (11.6-14.4); White Blood Count 6.1 K/mm3 (4.8-10.8)
[2022-10-19 15:00] LABS: Alanine Aminotransferase 510 U/L (14-59); Alkaline Phosphatase 90 U/L (46-116); Amylase 37 U/L (25-115); Anion Gap 8 mmol/L (8-16); Aspartate Amino Transferase 122 U/L (15-37); Bilirubin,Total 0.3 mg/dL (0.00-1.00); Blood Urea Nitrogen 18 mg/dL (7-18); Calcium 9.1 mg/dL (8.5-10.1); Carbon Dioxide 25 mmol/L (21-32); Chloride 104 mmol/L (98-108); Estimated Glomerular Filt Rate > 60; Glucose 148 mg/dL (70-99); Lipase 24 U/L (16-77); Osmolality Calculated 288 mOsm/kg (285-295); Potassium 4.2 mmol/L (3.5-5.1); Sodium 137 mmol/L (136-145); Total Protein 6.9 g/dL (6.4-8.2)
[2022-10-19 15:24] LABS: SPREG INTERNAL CONTROL Positive; Serum Qual hCG Negative
== END 2022-10-19 14:05 | disposition home or self-care (01) ==
LOC: CHSLAB 14:05
PROVIDERS: PCP Family Medicine; Visit Provider Family Medicine
DX: R10.84 Generalized abdominal pain (principal)
CPT/HCPCS: 36415; 80053; 82150; 83690; 84703; 85025

== ENCOUNTER 2022-10-19 15:50 | Outpatient (RCR) | payer OTHER, SELFPAY ==
--- NOTE | 2022-10-20 07:09 | BUPTOPEVAL1 ---
Assessment and note entered by Christopher Caruso Evaluation Information Assessment Status Evaluation Diagnosis cervicalgia Onset 05/30/22 Subjective Information Pt. reports that she was going down a slide at [employer], in the face first position, and hit an object face first. She reports she felt a pop in the neck and has noted pain since. Pt. describes pain going across the neck. She also notes numbness in both wrist's on occasion. She states that pain can wake her at night while sleeping. She states that she does work at [employer] and lifting heavy objects is difficult due to wrist pain. She also notes that she has migraines but has had them before her incident. she states that migraines are more frequent since her accident. She states that she continues to work despite her pain. She reports that her goal is to decrease her neck pain. Reported Pain Level Pain Score 6: Self Report Assessment PT Clinical Summary Pt. is a 41 year old female who enters the clinic with neck pain. She presents with impaired c- spine mobility, impaired postural awareness and generalized weakness of the periscapular and proximal u.e. mm. Continued skilled PT is indicated in order to improve these areas to allow the pt. to be able to participate in IADL's with decreased pain and improved efficiency. Plan of Care Interventions Electrical Stimulation,Hot Pack/Cold Pack,Manual Therapy,Mechanical Traction,Neuro Re-education, Patient/Caregiver Educati,Therapeutic Activities, Therapeutic Exercise PT Services Indicated Yes Treatment Frequency and 2x/week x 6 visits Duration These treatments will address the objective and functional deficits as defined above. The patient will be advanced safely and appropriately in order for the patient to progress towards his/her prior level of function. Additional exercises will be introduced and as well as a comprehensive home exercise program upon discharge, if needed, ?to ensure carryover of functional gains achieved in the clinic. This treatment plan has been reviewed and agreement upon by the patient.
== END 2022-12-08 23:59 | disposition home or self-care (01) ==
LOC: CHSPT 15:50
PROVIDERS: PCP Family Medicine; Visit Provider Family Medicine
DX: M54.2 Cervicalgia (principal)
CPT/HCPCS: 97014; 97110; 97112; 97140; 97161; G0283

== ENCOUNTER 2022-10-22 10:03 | Outpatient (CLI) | payer OTHER, SELFPAY ==
--- NOTE | ~2022-10-22 | US_ITS ---
EXAMINATION: US abdomen complete DATE: 10/22/2022 10:26 INDICATION: Abdominal pain. TECHNIQUE: Multiple grayscale and Doppler ultrasound images of the abdomen were obtained. COMPARISON: None FINDINGS: The visualized portions of the head and body of the pancreas are normal. There is diffuse h epatic steatosis. No liver surface nodularity. There is normal flow in main portal vein. The gallblad dav is absent. The common duct is normal and measures 3 mm. Right kidney measures 11.3 x 3.8 x 5.6 cm . Left kidney measures 10.1 x 4.7 x 5.2 cm. The spleen is normal in size. Abdominal aorta is normal i n caliber. Inferior vena cava is normal. IMPRESSION: 1. Diffuse hepatic steatosis. Reviewed, dictated and finalized at location A. UP MECHANIC STAMPING MACHINES
== END 2022-10-22 10:04 | disposition home or self-care (01) ==
LOC: CHSIMG 10:06
PROVIDERS: PCP Family Medicine; Visit Provider Family Medicine
DX: R10.9 Unspecified abdominal pain (principal); K76.0 Fatty (change of) liver, not elsewhere classified
CPT/HCPCS: 76700

== ENCOUNTER 2022-10-29 16:22 | Outpatient (CLI) | payer OTHER, SELFPAY ==
[2022-10-29 16:55] LABS: Basophils Absolute Auto 0.06 K/mm3 (0.00-0.10); Eosinophils Percent Auto 1.6 % (1.0-6.0); Hematocrit 33.4 % (35.0-49.0); Hemoglobin 10.3 g/dL (12.0-15.0); Lymphocytes Absolute Auto 2.16 K/mm3 (1.10-4.50); Lymphocytes Percent Auto 34.2 % (18.0-42.0); Mean Corpuscular HGB Conc 30.8 g/dL (32.0-36.0); Mean Corpuscular Hemoglobin 24.9 pg (27.0-31.0); Mean Corpuscular Volume 80.9 fL (78.0-102.0); Mean Platelet Volume 10.3 fl (9.2-11.8); Monocytes Absolute Auto 0.43 K/mm3 (0.10-0.90); Monocytes Percent Auto 6.8 % (2.0-11.0); Neutrophils Absolute Auto 3.6 K/mm3 (1.7-7.2); Neutrophils Percent Auto 56.4 % (50.0-70.0); Platelet Count Result 455 K/mm3 (150-420); Red Blood Count 4.13 M/mm3 (4.20-5.40); Red Cell Distribution Width 16.6 % (11.6-14.4); White Blood Count 6.3 K/mm3 (4.8-10.8)
[2022-10-29 17:18] LABS: Alanine Aminotransferase 50 U/L (14-59); Albumin Level 4.3 g/dL (3.4-5.0); Alkaline Phosphatase 47 U/L (46-116); Amylase 35 U/L (25-115); Anion Gap 11 mmol/L (8-16); Aspartate Amino Transferase 17 U/L (15-37); Bilirubin,Total 0.3 mg/dL (0.00-1.00); Blood Urea Nitrogen 20 mg/dL (7-18); Calcium 9.3 mg/dL (8.5-10.1); Carbon Dioxide 26 mmol/L (21-32); Chloride 106 mmol/L (98-108); Estimated Glomerular Filt Rate > 60; Glucose 130 mg/dL (70-99); Lipase 27 U/L (16-77); Osmolality Calculated 300 mOsm/kg (285-295); Potassium 3.9 mmol/L (3.5-5.1); Sodium 143 mmol/L (136-145); Total Protein 7.2 g/dL (6.4-8.2)
[2022-10-30 16:20] LABS: Ferritin 6 ng/mL (8-252); Iron 13 ug/dL (50-170); Percent Iron Saturation 4 % (12-57)
== END 2022-10-29 16:23 | disposition home or self-care (01) ==
LOC: CHSLAB 16:24
PROVIDERS: PCP Family Medicine; Visit Provider Family Medicine
DX: R10.84 Generalized abdominal pain (principal)
CPT/HCPCS: 36415; 80053; 82150; 82728; 83540; 83550; 83690; 85025

== ENCOUNTER 2022-11-09 09:19 | Outpatient (CLI) | payer OTHER, SELFPAY ==
--- NOTE | ~2022-11-09 | CT_ITS ---
EXAMINATION:CT diagnostic chest w con DATE: 11/09/2022 10:40 INDICATION: Disease of the esophagus. TECHNIQUE: Computed tomography (CT) of the chest was performed with 75 mL Omnipaque 350 intravenous c ontrast. Automated exposure control and iterative reconstruction technique were employed. The dose-le ngth product (DLP) was 181.59 mGy-cm. COMPARISON: None. FINDINGS: A calcified left lung nodule is consistent with old granulomatous disease. No pleural effus ion. The heart size is normal. No pericardial effusion. There are changes of cholecystectomy. Calcifi cations in the spleen are consistent with old granulomatous disease. The esophagus is normal. There i s a 6 mm nodule in left thyroid lobe, likely not clinically significant. There is mild thoracic spond ylosis. IMPRESSION: 1. Normal esophagus. Reviewed, dictated and finalized at location A. CUTTER IMPRESSION: 1. Normal esophagus.
== END 2022-11-09 09:20 | disposition home or self-care (01) ==
LOC: CHSIMG 09:22
PROVIDERS: PCP Family Medicine; Visit Provider Family Medicine
DX: K22.2 Esophageal obstruction (principal)
CPT/HCPCS: 71260; Q9967

== ENCOUNTER 2022-12-01 08:48 | Outpatient (CLI) | payer OTHER, SELFPAY | END 2022-12-01 08:49 | disposition home or self-care (01) | LOC: CHSIMG 08:50 | PROVIDERS: PCP Family Medicine; Visit Provider Family Medicine | DX: R91.8 Other nonspecific abnormal finding of lung field (principal) | CPT/HCPCS: 99199 ==

== ENCOUNTER 2023-01-14 16:32 | Emergency (ER) | payer OTHER, SELFPAY ==
[2023-01-14 16:32] VITALS: BP 109/79; PULSE 66; RESP 14; TEMP 36.8; O2SAT 100
--- NOTE | 2023-01-14 17:17 | ED.HA ---
HPI - Headache General Chief Complaint: Headache Stated Complaint: migraine x 4-5 hours Time Seen by Provider: 01/14/23 17:11 Source: patient and family Mode of arrival: ambulatory Limitations: no limitations History of Present Illness HPI Narrative: This is a 42-year-old female with some history of migraines presents with her typical migraine like headache throbbing light sensitive, sensitive to sound with no neck stiffness no fever chills does have some nausea with no episodes of vomiting no chest pain or shortness of breath. MD elicited complaint: migraine Onset (ago): hour(s) Onset description: gradually Location: frontal Severity: moderate Related Data Home Medications Medication Instructions Recorded Confirmed topiramate 100 mg tablet 100 mg PO DAILY 01/01/20 01/14/23 ascorbate calcium (vitamin C) 500 500 mg PO DAILY 03/18/20 01/14/23 mg tablet levothyroxine 175 mcg tablet 175 mcg PO DAILY 03/18/20 01/14/23 (Euthyrox) multivitamin (One-A-Day Essential 1 tablet PO DAILY 03/18/20 01/14/23 tablet) aspirin 81 mg tablet,delayed 81 mg PO DAILY 09/23/20 01/14/23 release (Adult Aspirin Regimen) atorvastatin 20 mg tablet 20 mg PO DAILY 09/23/20 01/14/23 Saccharomyces boulardii 250 mg 250 mg PO BID 06/11/22 01/14/23 capsule (Digest Probiotic (S.boulardii)) omeprazole 40 mg capsule,delayed 40 mg PO DAILY 06/11/22 01/14/23 release metformin 500 mg tablet 1,000 mg PO BIDWMEAL 09/24/22 01/14/23 Allergies Allergy/AdvReac Type Severity Reaction Status Date / Time ondansetron Allergy Severe Unknown Verified 09/24/22 11:14 pineapple Allergy Unknown Unknown Verified 09/24/22 11:14 Sulfa (Sulfonamide Allergy Itching Verified 09/24/22 11:14 Antibiotics) Review of Systems Review of Systems: All systems reviewed & are unremarkable except as noted in HPI and below PMFSH Past Medical History Medical History Body mass index (BMI) 35 or more (02/03/19) Cardiac arrhythmia Diabetes 1.5, managed as type 2 Dyslipidemia Headache, migraine Obesity (BMI 35.0-39.9 without comorbidity) JENNY (obstructive sleep apnea) Thyroid disease Ventricular ectopic beats Surgical History Surgical History History of abdominal surgery Removal of mass on left side History of bilateral tubal ligation History of x2 History of cholecystectomy Family History Family History Sibling Diabetes mellitus sister Family history of migraine headaches sister Thyroid disorder sister Mother Family history of thyroid disease Family history of migraine headaches Hypertension Family history of arthritis Grandparent Cerebrovascular accident Thyroid disorder Osteoporosis Pacemaker Grandparent Acute myocardial infarction Hypertension Social History Social History Smoking status: Former smoker Tobacco type: cigarettes Alcohol intake: former Substance use: current Substance use type: marijuana Other substance usage details: Sometimes Gender identity (if verbalized by the patient): Female Exam Const: General: healthy appearing Nutritional Appearance: well nourished Orientation/consciousness: patient oriented x3 Limitations: no limitations HENMT: Head: normal to inspection Eyes: Conjunctivae: conjunctivae normal Neck: Neck: normal visual inspection Chest: Chest palpation & inspection: normal inspection of the chest Resp: Effort & Inspection: normal respiratory effort Cardio: Rate: regular rate Rhythm: regular rhythm GI: GI Palp: Yes Soft to palpation : General: Yes bladder normal to palpation Skin: General skin exam: normal color Wounds: no wounds Neuro: General: patient oriented x3 Cranial nerves: Yes Nystagmus not present
[2023-01-14] MEDS: KETOROLAC 30 MG/ML VIAL (*BKC) IV PUSH (17:30)
[2023-01-14] MEDS: SODIUM CHLORIDE 0.9% IV 1,000 ML 999 ML IV CONT (17:30)
[2023-01-14] MEDS: METOCLOPRAMIDE HCL INJ 10 MG/2 ML VIAL IV PUSH (17:30)
== END 2023-01-14 18:06 | disposition home or self-care (01) ==
PROVIDERS: Emergency Provider Emergency Medicine; PCP Family Medicine
DX: G43.909 Migraine, unspecified, not intractable, without status migrainosus (principal); E13.9 Other specified diabetes mellitus without complications; Z79.84 Long term (current) use of oral hypoglycemic drugs; Z79.82 Long term (current) use of aspirin; Z87.891 Personal history of nicotine dependence
CPT/HCPCS: 96374; 96375; 99284; J1885; J2765; J7030

== ENCOUNTER 2023-05-18 09:46 | Outpatient (CLI) | payer OTHER, SELFPAY ==
--- NOTE | ~2023-05-18 | XR_ITS ---
EXAMINATION: XR foot RT min 3V DATE: 05/18/2023 10:03 INDICATION: Right foot pain. TECHNIQUE: 4 views of right foot were obtained. COMPARISON: Right foot radiographs 02/15/2019 FINDINGS: Bone alignment is normal. No fracture. There is mild osteoarthritis of first metatarsophala ngeal joint and fifth proximal interphalangeal joint. There are enthesophytes at the posterior and pl zully aspects of calcaneal tuberosity. IMPRESSION: 1. Mild polyarticular osteoarthritis. Reviewed, dictated and finalized at location A.
== END 2023-05-18 09:47 | disposition home or self-care (01) ==
PROVIDERS: PCP Family Medicine; Visit Provider Family Medicine
DX: M19.071 Primary osteoarthritis, right ankle and foot (principal); M79.671 Pain in right foot
CPT/HCPCS: 73630

== ENCOUNTER 2023-06-02 15:15 | Outpatient (CLI) | payer OTHER, SELFPAY ==
[2023-06-02 16:22] LABS: Strep Group A RT-PCR Not Detected (Negative)
[2023-06-02 16:36] LABS: Influenza A QL RT-PCR Negative (Negative); Influenza B QL RT-PCR Negative (Negative); SARS-CoV-2 RNA PCR Negative (Negative)
== END 2023-06-02 15:16 | disposition home or self-care (01) ==
LOC: CHSLAB 15:17
PROVIDERS: PCP Family Medicine; Visit Provider Family Medicine
DX: J02.9 Acute pharyngitis, unspecified (principal); Z20.822 Contact with and (suspected) exposure to COVID-19
CPT/HCPCS: 87636; 87651

== ENCOUNTER 2023-07-27 09:11 | Outpatient (CLI) | payer OTHER, SELFPAY ==
[2023-07-27 09:51] LABS: Strep Group A RT-PCR NOT DETECTED (Negative)
[2023-07-27 10:00] LABS: Influenza A QL RT-PCR Negative (Negative); Influenza B QL RT-PCR Negative (Negative); SARS-CoV-2 RNA PCR Negative (Negative)
== END 2023-07-27 09:12 | disposition home or self-care (01) ==
LOC: CHSLAB 09:13
PROVIDERS: PCP Family Medicine; Visit Provider Family Medicine
DX: J06.9 Acute upper respiratory infection, unspecified (principal)
CPT/HCPCS: 87636; 87651

== ENCOUNTER 2023-10-12 13:00 | Outpatient (RCR) | payer OTHER, SELFPAY | END 2023-11-01 10:01 | disposition home or self-care (01) | LOC: ANHDMC 13:00 | PROVIDERS: PCP Family Medicine; Visit Provider Internal Medicine Endocrinology, Diabetes & Metabolism | DX: E13.65 Other specified diabetes mellitus with hyperglycemia (principal); Z71.89 Other specified counseling | CPT/HCPCS: G0108 ==